=== PATIENT | female | born 1980 | race Caucasian/White ===

== ENCOUNTER → 2016-06-18 12:10 | Observation (INO) ==
--- NOTE | 2016-06-18 14:15 | OB/GYN Progress Note ---
Date of Encounter: 06/18/16 Time of Encounter: 14:00 - Assessment and Plan (1) and not yet delivered in third trimester Status: Acute (2) 36 weeks gestation of Status: Acute (3) uterine contractions in third trimester, antepartum Status: Acute Subjective - Subjective Interval history: Patient is a 35-year-old female who presented to labor and delivery with complaint of contractions. Patient is approximately 36 weeks' gets care at another facility. Patients previous section 6. Patient states that she is to deliver in [place] did call her physician who told her to come here we would assess her and then we could call him with how she was doing to determine if she was stable to be transferred. Patient was insistent that she would not have her baby at this facility. We did inform her that if she is truly luz maria it would be unsafe her eyes to transfer and we would need to do the section. Patient refused even let us place her on the monitor and signed out AMA. She was counseled prior to leaving that she is at risk for uterine rupture if she is truly luz maria that she was insistent that she would not have a baby at this institution and left
== END | disposition left against medical advice (07) ==
LOC: 1NENULAB
PROVIDERS: ADMIT Obstetrics & Gynecology; ATTEND Obstetrics & Gynecology

== ENCOUNTER → 2017-10-24 01:50 | Observation (INO) ==
[2017-10-24 01:16] LABS: Bilirubin,Urine Negative (Negative); Blood,Urine Negative (Negative); Clarity,Urine Clear (Clear); Color,Urine Yellow (Yellow); Glucose,Urine (UA) Normal (Normal); Ketones,Urine Negative (Negative); Leukocyte Esterase,Urine Negative (Negative); Nitrite,Urine Negative (Negative); PH,Urine 6.5 pH Units (5.0-8.0); Protein,Urine Negative (Neg-Trace); Specific Gravity,Urine 1.006 (1.010-1.025); Urobilinogen,Urine Normal (Normal)
[2017-10-24 01:24] LABS: Amphetamine Screen,Urine Negative ng/mL (Cutoff=1000); Barbiturate Screen,Urine Negative ng/mL (Cutoff=200); Benzodiazepines Screen,Urine Negative ng/mL (Cutoff=200); Cannabinoid Screen,Urine Negative ng/mL (Cutoff = 50); Cocaine Screen,Urine Negative ng/mL (Cutoff= 300); Opiate Screen,Urine Negative ng/mL (Cutoff=300); Phencyclidine Screen,Urine Negative ng/mL (Cutoff=25)
--- NOTE | 2017-10-24 01:36 | Discharge Summary ---
Date of Encounter: 10/24/17 Time of Encounter: 01:30 - Discharge Diagnosis (1) and not yet delivered in third trimester Priority: Primary (Normotensive) Status: Acute - Discharge Medications Home Medications: Vit #108/Iron/FA [ One Tablet] 1 each PO DAILY 10/24/17 [ History] Allergies/Adverse Reactions: 3 Allergy/AdvReac Type Severity Reaction Status Date / Time No Known Allergies Allergy Verified 10/23/17 23:28 Data Procedures and tests throughout hospitalization: Laboratory Tests 10/24/17 10/24/17 00:15 00:15 Urine Color Yellow Urine Clarity Clear Urine pH 6.5 Ur Specific [place] 1.006 L Urine Protein Negative Urine Glucose (UA) Normal Urine Ketones Negative Urine Blood Negative Urine Nitrite Negative Urine Bilirubin Negative Urine Urobilinogen Normal Ur Leukocyte Esterase Negative Ur Culture Indicated? NO Urine Opiates Screen Negative Ur Barbiturates Screen Negative Ur Phencyclidine Scrn Negative Ur Amphetamines Screen Negative U Benzodiazepines Scrn Negative Urine Cocaine Screen Negative U Marijuana (THC) Screen Negative Ur Drug Screen Interp See Below Labs on day of discharge: Labs from last 24 hours 10/24/17 10/24/17 00:15 00:15 Urine Color Yellow Urine Clarity Clear Urine pH 6.5 Ur Specific [place] 1.006 L Urine Protein Negative Urine Glucose (UA) Normal Urine Ketones Negative Urine Blood Negative Urine Nitrite Negative Urine Bilirubin Negative Urine Urobilinogen Normal Ur Leukocyte Esterase Negative Ur Culture Indicated? NO Urine Opiates Screen Negative Ur Barbiturates Screen Negative Ur Phencyclidine Scrn Negative Ur Amphetamines Screen Negative U Benzodiazepines Scrn Negative Urine Cocaine Screen Negative U Marijuana (THC) Screen Negative Ur Drug Screen Interp See Below Date of admission: 10/24/17 00:16 Primary care physician: PCP NONE - Patient Status Disposition: Home, Self-Care Condition: Good Functional capacity at discharge: independent ambulation Overall status at discharge: patient is back to baseline - Discharge Instructions Follow Up With: NONE,PCP [Primary Care Provider] - Additional Instructions: 36yo at 29+1wks GA who presents with concern for elevated BP Patient presents with concern for elevated BP. Was seen in office today (with her 6 children present) and found to be hypertensive. MD asked patient to take BP at home and if elevated, to go to ED. Patient has been asymptomatic. Denies NEGRO/CP/SOB/difficulty breathing. Reports active fetus. Denies vaginal bleeding, leaking of fluid, contraction(s). Had [id number] check BP at home and was at 160SBP. Patient called PCP and was told to present for evaluation Exam: Abdomen, soft, nonTTP Extremities: non-edemaous, normal pedal pulses, symmetric bilaterally Pelvic: deferred VS: Normotensive: 110s-120s/60-80s HR non-tachycardic HR WNL A/P: 36yo who presents with isolated elevated BP at home. 1. R/o PreE - normotensive consistently (110s-120s/60-80s) - no symptoms: NEGRO/CP/SOB/RUQP/blurry vision - denies VB/LOF/contraction(S) - No PreE labs sent - UA performed, if normal, patient for DC to home wiht precaution(S) - discussed being fit for BP cuff while at pharmacy, as this could be the discrepancy in BP readings at home - discussed si/sx of beware of regarding PreE 2. MWB - VSS, HDS, afebrile - UTD PNC with Dr. Jeffers 3. FWB - RNST for GA - 10x10 acceleration(s) - toco quiet - good FM Dispo: DC to home with PReE precaution(s) recommendation for patient to f/u with Dr. Jeffers should symptoms change. Recommendation for patient to be fit appropriately/properly for BP cuff. 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
== END | disposition home or self-care (01) ==
LOC: 1NENULAB
PROVIDERS: ADMIT Obstetrics & Gynecology; ATTEND Obstetrics & Gynecology